=== PATIENT | female | born 1990 | race Caucasian/White ===

== ENCOUNTER → 2017-08-20 | Outpatient (CLI) | payer OTHER ==
[~2017-08-20] MED LIST: CEPH500 PO; IBUP800 PO; MULVITMINE PO; NAPR500 PO; OXYACE5T PO; PROM25 PO; RXOXYACE PO; Verotin-Gr Cap1 EACH PO
[2017-08-21 12:20] LABS: Source VAG/CERVIX
== END ==
LOC: LAB 16:26
PROVIDERS: Advanced Practice Midwife
DX: Z01.419 Encounter for gynecological examination (general) (routine) without abnormal findings (principal)
CPT/HCPCS: G0123

== ENCOUNTER 2018-11-12 06:09 | Day surgery (SDC) | payer OTHER ==
[~2018-11-12] VITALS: Ht 162.6 cm; Wt 80.1 kg
[~2018-11-12 06:09] MED LIST changes: +HYDPAM50 PO; +LESSINA PO
[2018-11-12] MEDS ORDERED: ESTR2 PO (07:00)
--- NOTE | 2018-11-12 09:15 | NUR ---
11/12/18 0915 Cee Erickson 800CC NACL FLUID DEFICIT FROM HYSTEROSCOPY. SURGEON AND ANESTHESIA AWARE.
--- NOTE | 2018-11-12 10:22 | NUR ---
11/12/18 1022 Judi Meyer AT 1010 PATIENT COMPLAINED OF PAIN AND NAUSEA. PT IS IN THE RECLINER ACCOMPANIED BY HER FIANCE. VSS A COOL WASHCLOTH WAS PLACED ON THE PT'S FOREHEAD PER PT REQUEST. 10MG IV REGLAN WAS ADMINISTERED PER DR BEATTY'S ORDERS. FENTANYL WAS ALSO ADMINSTERED AT 1016. PT IS RESTING AT THIS TIME WITH EYES CLOSED. EMESIS BAG IN HAND. PO FLUIDS AT CHAIRSIDE. CALL LIGHT IN REACH.
== END 2018-11-12 11:30 | disposition home or self-care (01) ==
LOC: ORSCSDS 06:09
PROVIDERS: Obstetrics & Gynecology
PROC: 0U5B8ZZ Destruction of Endometrium, Via Natural or Artificial Opening Endoscopic (ICD-10-PCS; principal; 2018-11-12 07:30)
PROC: 0UT74ZZ Resection of Bilateral Fallopian Tubes, Percutaneous Endoscopic Approach (ICD-10-PCS; principal; 2018-11-12 07:30)
DX: Z30.2 Encounter for sterilization (principal); N92.1 Excessive and frequent menstruation with irregular cycle; N71.9 Inflammatory disease of uterus, unspecified
CPT/HCPCS: 88302; 88305; J0690; J1100; J1885; J2250; J2405; J2704; J2765; J3010; J7120

== ENCOUNTER 2022-02-11 06:17 | Day surgery (SDC) | payer OTHER ==
[2022-02-10 12:23] LABS: BASOPHILS ABSOLUTE AUTO 0.01 K/mm3 (0.00-0.23); BASOPHILS PERCENT AUTO 0 % (0-2); EOSINOPHILS ABSOLUTE AUTO 0.06 K/mm3 (0.00-0.68); EOSINOPHILS PERCENT AUTO 1 % (0-6); Hematocrit 38.7 % (33.0-51.0); Hemoglobin 12.9 g/dL (11.5-16.0); IMMATURE GRAN ABSOLUTE AUTO 0.01 K/mm3 (0.00-0.10); IMMATURE GRAN PERCENT AUTO 0 % (0-1); LYMPHOCYTES ABSOLUTE AUTO 1.52 K/mm3 (0.84-5.20); LYMPHOCYTES PERCENT AUTO 29 % (21-46); MONOCYTES ABSOLUTE AUTO 0.32 K/mm3 (0.16-1.47); MONOCYTES PERCENT AUTO 6 % (4-13); Mean Corpuscular HGB 28.5 pg (26.0-34.0); Mean Corpuscular HGB Conc 33.3 g/dL (31.5-36.5); Mean Corpuscular Volume 86 fL (80-100); Mean Platelet Volume 10.6 fL (9.1-12.4); NEUTROPHILS ABSOLUTE AUTO 3.34 K/mm3 (1.96-9.15); NEUTROPHILS PERCENT AUTO 64 % (41-73); Platelet Count 228 K/mm3 (150-400); RDW Coefficient Variation 13.2 % (11.7-14.2); Red Blood Cell Count 4.52 M/mm3 (3.80-5.20); White Blood Cell Count 5.26 K/mm3 (4.00-11.30)
[~2022-02-11] VITALS: Ht 162.6 cm; Wt 82.5 kg
[~2022-02-11 06:17] MED LIST changes: +ESTR2 PO
--- NOTE | 2022-02-11 08:58 | NUR ---
02/11/22 0858 Marisel Blum PRIOR TO SURGERY START, BULTER TABLE IN PLACE AND SECURED PROTECTING PATIENT'S FACE,HEAD, AND INTUBATION TUBE.
--- NOTE | 2022-02-11 19:17 | NUR ---
SHIFT SUMMARY PT WAS INITIALLY PAINFUL & NAUSEATED UPON ARRIVAL TO ROOM AROUND 1215. TORADOL & PHENERGAN ALLOWED PT TO REST/NAP. WHEN AWOKE AROUND 1600, FELT MUCH BETTER. WAS HUNGRY, SNACKS GIVEN & MEDICATED FOR PAIN. WITH MUCH ENCOURAGEMENT PT GOT UP TO AMBULATE IN ROOM. REQUESTED TO LEAVE FULLER IN UNTIL MORNING.
--- NOTE | 2022-02-12 04:57 | NUR ---
SHIFT SUMMARY PT POD 0 LAP HYSTERECTOMY. PT HAS DONE WELL OVERNIGHT, PAIN HAS BEEN MINIMAL. PT GASSY BUT HAS BEEN UP AND AMBULATING IN THE HALLWAY. SCANT VAGINAL BLEEDING WHEN USING THE BED RAO DURING DAYSHIFT, NONE REPORTED THIS SHIFT. PT PREFERS TO KEEP FULLER IN OVERNIGHT. VITALS STABLE. PLAN IS FOR DC TODAY. BED IN LOWEST POSITION, CALL LIGHT WITHIN REACH.
[2022-02-12 05:06] LABS: BASOPHILS ABSOLUTE AUTO 0.01 K/mm3 (0.00-0.23); BASOPHILS PERCENT AUTO 0 % (0-2); EOSINOPHILS PERCENT AUTO 0 % (0-6); Hematocrit 35.6 % (33.0-51.0); Hemoglobin 11.6 g/dL (11.5-16.0); IMMATURE GRAN ABSOLUTE AUTO 0.02 K/mm3 (0.00-0.10); IMMATURE GRAN PERCENT AUTO 0 % (0-1); LYMPHOCYTES ABSOLUTE AUTO 2.19 K/mm3 (0.84-5.20); LYMPHOCYTES PERCENT AUTO 27 % (21-46); MONOCYTES ABSOLUTE AUTO 0.64 K/mm3 (0.16-1.47); MONOCYTES PERCENT AUTO 8 % (4-13); Mean Corpuscular HGB 28.3 pg (26.0-34.0); Mean Corpuscular HGB Conc 32.6 g/dL (31.5-36.5); Mean Corpuscular Volume 87 fL (80-100); Mean Platelet Volume 10.3 fL (9.1-12.4); NEUTROPHILS PERCENT AUTO 66 % (41-73); Platelet Count 214 K/mm3 (150-400); RDW Coefficient Variation 13.2 % (11.7-14.2); RDW Standard Deviation 41.8 fL (35.1-46.3); White Blood Cell Count 8.26 K/mm3 (4.00-11.30)
[2022-02-12] MEDS ORDERED: IBUP400 PO (10:54)
[2022-02-12] MEDS ORDERED: Percocet 5-3251 EACH PO (10:55)
[2022-02-12] MEDS ORDERED: PROM25 PO (10:58)
[2022-02-12] MEDS ORDERED: SIME80CH PO (10:59)
--- NOTE | 2022-02-12 11:15 | NUR ---
DISCHARGE EDUCATION DISCUSSED DC INFO, ABD BINDER GIVEN & WILL PLACE ON PRIOR TO DC WHEN UP NEXT, PT FEELS COMFORTABLE w/ DC. SCRIPTS ALREADY AT HOME. WAITING FOR TRANSPORTATION TO ARRIVE.
--- NOTE | 2022-02-12 11:52 | NUR ---
DISCHARGE ESCORTED OUT VIA W/C w/ & SON AT SIDE.
== END 2022-02-12 12:25 | disposition home or self-care (01) ==
LOC: ORSCMMR 06:17 → ORD 07:30 → SURS 11:55 → ORSCMMR 02-12 12:25
PROVIDERS: Obstetrics & Gynecology
PROC: 0U5F4ZZ Destruction of Cul-de-sac, Percutaneous Endoscopic Approach (ICD-10-PCS; principal; 2022-02-11 07:30)
PROC: 0UT24ZZ Resection of Bilateral Ovaries, Percutaneous Endoscopic Approach (ICD-10-PCS; principal; 2022-02-11 07:30)
PROC: 8E0W4CZ Robotic Assisted Procedure of Trunk Region, Percutaneous Endoscopic Approach (ICD-10-PCS; principal; 2022-02-11 07:30)
PROC: 0UT94ZZ Resection of Uterus, Percutaneous Endoscopic Approach (ICD-10-PCS; principal; 2022-02-11 07:30)
DX: N80.0 Endometriosis of uterus (principal); N92.0 Excessive and frequent menstruation with regular cycle; N94.6 Dysmenorrhea, unspecified; N80.3 Endometriosis of pelvic peritoneum; D27.0 Benign neoplasm of right ovary; N83.12 Corpus luteum cyst of left ovary
CPT/HCPCS: 58571; 58662; S2900; 36415; 85025; 86850; 86900; 86901; 88305; 88307; A9270; J0690; J1100; J1885; J2405; J2550; J2704; J3010; J7120

== ENCOUNTER 2023-01-24 18:28 | Emergency (ER) | payer OTHER ==
[~2023-01-24] VITALS: Ht 162.6 cm; Wt 81.7 kg
[~2023-01-24 18:28] MED LIST changes: +IBUP400 PO; +Percocet 5-3251 EACH PO; +SIME80CH PO
[2023-01-24 18:46] VITALS: BP 130/87
[2023-01-24] MEDS ORDERED: Bactrim Ds Tab1 EACH PO (21:56)
== END 2023-01-24 22:02 | disposition home or self-care (01) ==
LOC: ER 18:28
DX: H00.012 Hordeolum externum right lower eyelid (principal); Z88.5 Allergy status to narcotic agent; W22.8XXA Striking against or struck by other objects, initial encounter
CPT/HCPCS: 99283; A9270